=== PATIENT | female | born 1955 | race Caucasian/White ===

== ENCOUNTER 2021-05-20 04:37 | Emergency (ER) | payer MEDICARE, OTHER ==
[~2021-05-20] VITALS: Ht 170.2 cm; Wt 59.0 kg
[~2021-05-20 04:37] MED LIST: FLUO20CA36 PO
[2021-05-20] MEDS ORDERED: CEPH500T PO (04:58)
[2021-05-20] MEDS ORDERED: SODIUM BICARBONATE 4.2 % (NEUT) 5 ML VIAL TP ONE (05:00)
[2021-05-20] MEDS ORDERED: LIDOCAINE 1%-EPI 1:100,000 20 ML VIAL MC ONE (05:00)
[2021-05-20] MEDS ORDERED: CEphaleXIN 500 MG CAPSULE PO ONE (05:00)
[2021-05-20] MEDS ORDERED: SODIUM BICARBONATE 4.2 % (NEUT) 5 ML VIAL ONE (05:08)
[2021-05-20] MEDS ORDERED: CEphaleXIN 500 MG CAPSULE ONE (05:08)
[2021-05-20 05:23] VITALS: BP 127/79
--- NOTE | 2021-05-20 05:23 | NUR ---
Patient discharged to home in stable condition. Written and verbal after care instructions given. Patient verbalizes understanding of instructions. Stressed follow up or return to ER for worsening s/s.
== END 2021-05-20 05:24 | disposition home or self-care (01) ==
LOC: ER 04:51
DX: S01.81XA Laceration without foreign body of other part of head, initial encounter (principal); W01.0XXA Fall on same level from slipping, tripping and stumbling without subsequent striking against object, initial encounter; Y92.89 Other specified places as the place of occurrence of the external cause; F32.9 Major depressive disorder, single episode, unspecified; Z79.899 Other long term (current) drug therapy
CPT/HCPCS: 12013; 99283; J3490; A4663